=== PATIENT | female | born 1955 | race Caucasian/White ===

== ENCOUNTER 2018-03-12 14:05 | Emergency (ER) | payer MEDICARE, BC ==
[2018-03-12 14:23] VITALS: BP 122/82
--- NOTE | 2018-03-12 14:46 | ER Document Report ---
ED Extremity Problem, Lower - General Chief Complaint: Toe Injury Stated Complaint: TOE INJURY LEFT FOOT Time Seen by Provider: 03/12/18 14:33 Mode of Arrival: Ambulatory Information source: Patient Notes: 63-year-old female presents to ED for complaint of pain in the fourth toe on the left foot. She states she kicked a leg of the couch accidentally about an hour before coming to the emergency room and she states she was trying to help her mother get into her recliner chair. Patient is alert and oriented respirations regular and unlabored speaking in full sentences walks with a limp due to the pain in her fourth toe. - HPI Patient complains to provider of: Injury, Pain, Swelling Location: 4th Toe Occurred: Just prior to arrival Where: Home, Indoors Onset/Duration: Sudden, Better Quality of pain: No pain - States no pain at this moment Severity: None Pain Level: Denies Context: Stubbed Recent injury: Yes Associated symptoms: Painful ambulation Exacerbated by: Movement, Walking Relieved by: Nothing - Related Data Allergies/Adverse Reactions: No Known Allergies Allergy (Verified 03/12/18 14:07) Past Medical History - General Information source: Patient - Social History Smoking Status: Never Smoker Cigarette use (# per day): No Chew tobacco use (# tins/day): No Smoking Education Provided: No Frequency of alcohol use: None Drug Abuse: None Lives with: Family Family History: Reviewed & Not Pertinent Patient has suicidal ideation: No Patient has homicidal ideation: No - Past Medical History Cardiac Medical History: Reports: Hx Hypertension, Other - Venous stasis Pulmonary Medical History: Reports: None EENT Medical History: Reports: None Neurological Medical History: Reports: None Endocrine Medical History: Reports: Hx Hypothyroidism Renal/ Medical History: Reports: None GI Medical History: Reports: Hx Gastroesophageal Reflux Disease Musculoskeletal Medical History: Reports Hx Arthritis Skin Medical History: Reports None Psychiatric Medical History: Reports: None Traumatic Medical History: Reports: None Infectious Medical History: Reports: None Past Surgical History: Reports: Hx Abdominal Surgery - gastric bypass, hernia repair, Hx Section, Hx Thyroid Surgery - Immunizations Hx Diphtheria, Pertussis, Tetanus Vaccination: Yes Review of Systems - Review of Systems Constitutional: No symptoms reported EENT: No symptoms reported Cardiovascular: No symptoms reported Respiratory: No symptoms reported Gastrointestinal: No symptoms reported Genitourinary: No symptoms reported Female Genitourinary: No symptoms reported Musculoskeletal: No symptoms reported Skin: No symptoms reported Hematologic/Lymphatic: No symptoms reported Neurological/Psychological: No symptoms reported -: Yes All other systems reviewed and negative Physical Exam - Vital signs Vitals: Temp Pulse Resp BP Pulse Ox 97.8 F 72 20 122/82 99 03/12/18 14:22 03/12/18 14:22 03/12/18 14:22 03/12/18 14:22 03/12/18 14:22 Interpretation: Normal - General General appearance: Appears well, Alert - HEENT Head: Normocephalic, Atraumatic Eyes: Normal Pupils: PERRL - Respiratory Respiratory status: No respiratory distress Chest status: Nontender Breath sounds: Normal Chest palpation: Normal - Cardiovascular Rhythm: Regular Heart sounds: Normal auscultation Murmur: No - Abdominal Inspection: Normal Distension: No distension Bowel sounds: Normal Tenderness: Nontender Organomegaly: No organomegaly - Back Back: Normal, Nontender - Extremities General upper extremity: Normal inspection, Nontender, Normal color, Normal ROM , Normal temperature General lower extremity: Normal color, Normal ROM, Normal temperature, Normal weight bearing. No: Beck's sign Foot: Tender, Ecchymosis - Left fourth toe, Edema, No evidence of FB, Other - Patient has a history of venous stasis in both feet are 2-3+ edema pitting. No : Abrasion, Deformity, Instability, Laceration, Metatarsal compress. pain, Nail injury, Navicular tenderness, Puncture wound, Tender 5th metatarsal, Unable to bear weight - Neurological Neuro grossly intact: Yes Cognition: Normal Orientation: AAOx4 [place] Coma Scale Eye Opening: Spontaneous Shy Coma Scale Verbal: Oriented Shy Coma Scale Motor: Obeys Commands Shy Coma Scale Total: 15 Speech: Normal Motor strength normal: LUE, RUE, LLE, RLE Sensory: Normal - Psychological Associated symptoms: Normal affect, Normal mood - Skin Skin Temperature: Warm Skin Moisture: Dry Skin Color: Normal Course - Re-evaluation Re-evalutation: 03/12/18 14:46 Patient requested that she take her own medication that she brought from home. She states she took 650 of Tylenol and 400 of ibuprofen from her purse. They did appear to be Tylenol and Motrin. Ice was applied to the toe. 03/12/18 15:29 Patient has a comminuted fracture of the fourth toe. There is no opening so it is a closed fracture. She has been treated with a posterior ankle splint with crutches and instructed to follow-up with orthopedics. She states she does not need any narcotics at this time. Patient has been instructed on use of crutches and splint and how to loosen the Anmol wraps on the splint for any swelling. Patient has been instructed on elevation and ice for the foot. Patient will be discharged home with instructions to follow-up with orthopedics. - Vital Signs Vital signs: Temp Pulse Resp BP Pulse Ox 97.8 F 72 20 122/82 99 03/12/18 14:22 03/12/18 14:22 03/12/18 14:22 03/12/18 14:22 03/12/18 14:22 - Diagnostic Test Radiology reviewed: Image reviewed, Reports reviewed Procedures - Immobilization Left Toe 4th digit Time completed: 15:30 Immobilizer type: Posterior ankle Performed by: PCT Post-Proc Neuro Vasc Exam: Normal Alignment checked and good: No - Fracture was not set but she does have Refills. Discharge - Discharge Clinical Impression: Fracture of fourth toe, left, closed Qualifiers: Encounter type: initial encounter Qualified Code(s): S92.502A - Displaced unspecified fracture of left lesser toe(s), initial encounter for closed fracture Condition: Stable Disposition: HOME, SELF-CARE Additional Instructions: Fractured Toe You have fractured your toe. This fracture need a splint, emergency evaluation was needed to assess the straightness of the bones and joints. Reduction ("setting") is necessary for toe fractures which are crooked or twisted. A toe fracture will heal in about three weeks. No fracture is a comminuted fracture that needs evaluation by a research quality assurance specialist. Ice and elevation help during the first 48 hours. You may need crutches at first if walking is painful. When you begin walking, be careful NOT to do things that hurt. If weight bearing is not comfortable within a few days, you may require a special shoe, walking boot, or cast. Call the doctor or return at once if severe swelling, severe pain, or numbness develop in the toe, or if you suspect you may have re-injured it. SPLINT PRECAUTIONS: A splint has been placed. This will protect the area while healing begins. Your problem does NOT normally require a cast. It MUST, however, be held still! Keep the splint on ALL THE TIME until instructed to remove it by the doctor. As you begin to use the area, be careful. You shouldn't do anything which causes discomfort -- you may disturb the injury even with the splint in place. After the initial period of rest and elevation, if splint does not prevent pain when you move, come back. You may require placement of a different splint , or a cast. If there is unexpected severe pain, or numbness, discoloration, or swelling beyond the splint, you should return at once. If you feel that the splint has broken or become loose, come back. USE OF CRUTCHES: The doctor has recommended that you not bear weight at this time. You will need to use crutches. Adjust the crutches so the tops come to about two inches under the armpit while you are standing upright. Use your hands -- not your armpits -- to support your weight. To get into a chair, support yourself with one crutch on the injured side. Hold the chair with the other hand, then lower yourself while putting all your weight on the good leg. Going up stairs is `good leg up, step up, then bring up crutches and bad leg.' Down stairs is `bad leg and crutches down, then bring good leg down.' If you develop numbness or swelling in an arm or hand, you are using the crutches incorrectly. Return if you are having any problems with the crutches. ICE & ELEVATION: Apply ice packs frequently against the painful area. Many different schedules are recommended, such as "20 minutes on, 20 minutes off" or "one hour ice, two hours rest." If you need to work, you may need to go longer between ice treatments. You should plan to have the area ice packed AT LEAST one- fourth of the time. The ice should be applied over the wrap, tape, or splint, or over a layer of cloth -- not directly against the skin. Some ice bags have a built-in cloth and can be put directly on the skin. Your injured part should be elevated as much as possible over the next 48 hours. Try to keep the injury above the level of the heart. Avoid use of the injured area. Elevation and rest will decrease the swelling. USE OF DHUK-FRS-LCIDENF IBUPROFEN: Ibuprofen (Advil, Nuprin, Medipren, Motrin IB) is a medication for fever and pain control. In addition, it has anti- inflammatory effects which may be beneficial, especially in the treatment of injuries. It's best to take ibuprofen with food. Persons with ulcer disease or allergy to aspirin should notify their physician of this before taking ibuprofen. Ibuprofen can be given every four to six hours, for a total of four doses daily. Age Pain or fever dose Antiinflammatory dose 6-8 yr 200 mg (1 tab) 200 mg (1 tab) 9-11 yr 200 mg (1 tab) 200-400 mg (1-2 tab) 11-14 yr 200-400 mg (1-2 tab) 400 mg (2 tab) 15-adult 400 mg (2 tab) 600 mg (3 tab) Acetaminophen Acetaminophen may be taken for pain relief or fever control. It's much safer than aspirin, offering a wider range of "safe" dosages. It is safe during . Some brand names are Tylenol, Panadol, Datril, Anacin 3, Tempra, and Liquiprin. Acetaminophen can be repeated every four hours. The following are maximum recommended dosages: WEIGHT Dose Drops Elixir Chewable( 80mg) (LBS.) drprs=droppers tsp=teaspoon 6 40 mg .4 ml (1/2) 6-11 80 mg .8 ml (full) 1/2 tsp 1 tab 12-16 120 mg 1 1/2 drprs 3/4 tsp 1 1/2 tabs 17-23 160 mg 2 drprs 1 tsp 2 tabs 24-30 240 mg 3 drprs 1 1/2 tsp 3 tabs 30-35 320 mg 2 tsp 4 tabs 36-41 360 mg 2 1/4 tsp 4 1 /2 tabs 42-47 400 mg 2 1/2 tsp 5 tabs 48-53 480 mg 3 tsp 6 tabs 54-59 520 mg 3 1/4 tsp 6 1 /2 tabs 60-64 560 mg 3 1/2 tsp 7 tabs 65-70 600 mg 3 3/4 tsp 7 1 /2 tabs 71-76 640 mg 4 tsp 8 tabs 77-82 720 mg 4 1/2 tsp 9 tabs 83-88 800 mg 5 tsp 10 tabs >89 pounds or adults 650 mg to 900 mg Acetaminophen can be repeated every four hours. Maximum daily dose not to exceed 4000 mg. These maximum recommended dosages are slightly higher than the dosages written on the product container, but these dosages are very safe and well below the toxic dosage for acetaminophen. FOLLOW-UP CARE: If you have been referred to a physician for follow-up care, call the physician s office for an appointment as you were instructed or within the next two days. If you experience worsening or a significant change in your symptoms, notify the physician immediately or return to the Emergency Department at any time for re-evaluation. Referrals: SEN OGDEN MD [Primary Care Provider] - Follow up as needed ARAMIS ALVAREZ MD [ACTIVE STAFF] - Follow up as needed
--- NOTE | 2018-03-12 15:30 | RADIOLOGY REPORT (SQ) ---
EXAM DESCRIPTION: FOOT LEFT COMPLETE COMPLETED DATE/TIME: 03/12/2018 3:03 pm REASON FOR STUDY: Accidentally kicked the foot of a couch COMPARISON: None. NUMBER OF VIEWS: Three views. TECHNIQUE: AP, lateral and oblique radiographic images acquired of the left foot. LIMITATIONS: None. FINDINGS: MINERALIZATION: Osteopenic. BONES: Acute fracture right 4th toe proximal phalanx with slight lateral displacement of the distal f racture fragment. JOINTS: No effusions. SOFT TISSUES: Mild forefoot soft tissue swelling. No foreign body. OTHER: No other significant finding. IMPRESSION: Acute fracture right 4th toe proximal phalanx. TECHNICAL DOCUMENTATION: JOB ID: [id number] [employer]- All Rights Reserved Reading location - IP/workstation name: [email or web address]
== END 2018-03-12 15:50 | disposition home or self-care (01) ==
LOC: ER 14:05
DX: S92.512A Displaced fracture of proximal phalanx of left lesser toe(s), initial encounter for closed fracture (principal); W22.03XA Walked into furniture, initial encounter; Y93.89 Activity, other specified; Y92.009 Unspecified place in unspecified non-institutional (private) residence as the place of occurrence of the external cause; I10 Essential (primary) hypertension; Z98.84 Bariatric surgery status
CPT/HCPCS: 99283

== ENCOUNTER 2018-04-07 07:28 | Emergency (ER) | payer MEDICARE, BC ==
[2018-04-07] MEDS ORDERED: LIDOCAINE 5% (700 MG) TRANSDERMAL ADH..PATCH TP ONE (08:05)
[2018-04-07] MEDS ORDERED: IBUPROFEN 600 MG TABLET PO ONE (08:05)
--- NOTE | 2018-04-07 08:09 | ER Document Report ---
HPI - HPI Pain Level: 3 Notes: Patient is a 63-year-old female who presents with chief complaint of pain to her left ribs and back. Patient reports that she was up early this morning making cupcakes when she fell backwards, she landed onto a chair that was sitting on the ground. She reports pain with deep breath however she denies any shortness of breath. - REPRODUCTIVE Reproductive: DENIES: : <NOLAN QUEZADA - Last Filed: 04/07/18 08:21> - HPI Onset/Duration: Sudden Quality of pain: Sharp Associated Symptoms: None Exacerbated by: Movement Relieved by: Denies <AUSTINYELENA - Last Filed: 04/07/18 10:19> Past Medical History - General Information source: Patient - Social History Smoking Status: Never Smoker Frequency of alcohol use: None Drug Abuse: None Family History: Reviewed & Not Pertinent - Past Medical History Cardiac Medical History: Reports: Hx Hypertension Endocrine Medical History: Reports: Hx Hypothyroidism Renal/ Medical History: Denies: Hx Peritoneal Dialysis GI Medical History: Reports: Hx Gastroesophageal Reflux Disease Musculoskeletal Medical History: Reports Hx Arthritis Past Surgical History: Reports: Hx Abdominal Surgery - gastric bypass, hernia repair, Hx Section, Hx Thyroid Surgery - Immunizations Hx Diphtheria, Pertussis, Tetanus Vaccination: Yes <NOLAN QUEZADA - Last Filed: 04/07/18 08:21> Vertical Provider Document - CONSTITUTIONAL Notes: PHYSICAL EXAMINATION: GENERAL: Well-appearing, well-nourished and in no acute distress. HEAD: Atraumatic, normocephalic. EYES: Pupils equal round extraocular movements intact, conjunctiva are normal. ENT: Nares patent NECK: Normal range of motion LUNGS: No respiratory distress, lung sounds are clear and equal bilaterally. Musculoskeletal: Normal range of motion, no ecchymosis, erythema or crepitus noted on palpation to left ribs. NEUROLOGICAL: Normal speech, normal gait. PSYCH: Normal mood, normal affect. SKIN: Warm, Dry, normal turgor, no rashes or lesions noted. - INFECTION CONTROL TRAVEL OUTSIDE OF THE [place] IN LAST 30 DAYS: No <NOLAN QUEZADA - Last Filed: 04/07/18 08:21> Course - Re-evaluation Re-evalutation: 04/07/18 08:07 Medications ordered for pain. Patient does not appear to be in any acute distress. Will order left ribs with a PA chest to rule out pneumothorax. - Vital Signs Vital signs: Temp Pulse Resp BP Pulse Ox 98.0 F 82 20 115/57 L 99 04/07/18 07:35 04/07/18 07:35 04/07/18 07:35 04/07/18 07:35 04/07/18 07:35 <NOLAN QUEZADA - Last Filed: 04/07/18 08:21> - Re-evaluation Re-evalutation: 04/07/18 10:16 I personally evaluated this patient. She received Lidoderm patch and anti- inflammatories and had significant improvement of her pain. CT scan does show 3 consecutive rib fractures with no underlying pneumothorax or lung contusion she has no flail segment and is breathing easily. She appears comfortable and is able to ambulate without much difficulty. She will be given incentive spirometer and was counseled on symptoms of pneumonia to return to the emergency room. She will be given [place] for pain control. She will follow with primary care for close reevaluation as her rib fractures heal. She will return to the ED for new or worsening symptoms. She was discharged in stable condition. - Vital Signs Vital signs: Temp Pulse Resp BP Pulse Ox 98.0 F 82 20 115/57 L 99 04/07/18 07:35 04/07/18 07:35 04/07/18 07:35 04/07/18 07:35 04/07/18 07:35 <YELENA AUSTIN - Last Filed: 04/07/18 10:19> Discharge <NOLAN QUEZADA - Last Filed: 04/07/18 08:21> <YELENA AUSTIN - Last Filed: 04/07/18 10:19> - Discharge Clinical Impression: Rib fractures Qualifiers: Encounter type: initial encounter Rib fracture type: multiple ribs Fracture type: closed Laterality: left Qualified Code(s): S22.42XA - Multiple fractures of ribs, left side, initial encounter for closed fracture Condition: Stable Disposition: HOME, SELF-CARE Instructions: Rib Injuries and Fractures ([facility]) Additional Instructions: Please return to the emergency department if you have any worsening, or concern of your symptoms. Please return to the emergency department if you develop chest pain, difficulty breathing, severe abdominal pain, or ongoing vomiting. Please follow-up with your primary care physician in 2-3 days and any other recommended physicians. If prescribed, take all medications as directed. If you have any questions or concerns do not hesitate to return the emergency department for evaluation. Use your incentive spirometer at least 2-3 times daily, with 10 deep breaths. Return for any fevers or increased coughing Prescriptions: Hydrocodone/Acetaminophen [[place] 5-325 mg Tablet] 1 tab PO Q6 #12 tablet Referrals: SEN OGDEN MD [NO LOCAL MD] - Follow up in 1 week
--- NOTE | 2018-04-07 08:22 | ER Document Report ---
ED General Pain - General Chief Complaint: Rib Pain Stated Complaint: FALL/LEFT RIB PAIN Time Seen by Provider: 04/07/18 07:58 TRAVEL OUTSIDE OF THE [place] IN LAST 30 DAYS: No - Related Data Allergies/Adverse Reactions: No Known Allergies Allergy (Verified 04/07/18 07:30) Past Medical History - General Information source: Patient - Social History Smoking Status: Never Smoker Chew tobacco use (# tins/day): No Frequency of alcohol use: None Drug Abuse: None Family History: Reviewed & Not Pertinent Patient has suicidal ideation: No Patient has homicidal ideation: No - Past Medical History Cardiac Medical History: Reports: Hx Hypertension Endocrine Medical History: Reports: Hx Hypothyroidism Renal/ Medical History: Denies: Hx Peritoneal Dialysis GI Medical History: Reports: Hx Gastroesophageal Reflux Disease Musculoskeletal Medical History: Reports Hx Arthritis Past Surgical History: Reports: Hx Abdominal Surgery - gastric bypass, hernia repair, Hx Section, Hx Thyroid Surgery - Immunizations Hx Diphtheria, Pertussis, Tetanus Vaccination: Yes Physical Exam - Vital signs Vitals: Temp Pulse Resp BP Pulse Ox 98.0 F 82 20 115/57 L 99 04/07/18 07:35 04/07/18 07:35 04/07/18 07:35 04/07/18 07:35 04/07/18 07:35 Course - Vital Signs Vital signs: Temp Pulse Resp BP Pulse Ox 98.0 F 82 20 115/57 L 99 04/07/18 07:35 04/07/18 07:35 04/07/18 07:35 04/07/18 07:35 04/07/18 07:35 Discharge - Discharge Referrals: SEN OGDEN MD [NO LOCAL MD] - Follow up as needed
--- NOTE | 2018-04-07 08:49 | RADIOLOGY REPORT (SQ) ---
EXAM DESCRIPTION: RIBS LEFT W/PA CHEST COMPLETED DATE/TIME: 04/07/2018 8:38 am REASON FOR STUDY: fall, posterior rib pain COMPARISON: None. TECHNIQUE: Frontal view of the chest and additional views of the left ribs acquired. NUMBER OF VIEWS: Three view. LIMITATIONS: None. FINDINGS: FRONTAL CXR: No pneumothorax. No pleural effusion. No atelectasis or infiltrates. RIBS: Fractures of the left 4th 5th and 6th posterior ribs. OTHER: No other significant finding. IMPRESSION: Recent fractures 4th, 5th, and 6th posterior ribs. No pulmonary contusion or pneumothor ax. COMMENT: SITE OF TRAUMA/COMPLAINT MARKED/STAMP COMPLETED: YES. TECHNICAL DOCUMENTATION: JOB ID: [id number] [employer]- All Rights Reserved Reading location - IP/workstation name: [email or web address]
--- NOTE | 2018-04-07 09:28 | RADIOLOGY REPORT (SQ) ---
EXAM DESCRIPTION: CT CHEST WITHOUT COMPLETED DATE/TIME: 04/07/2018 9:14 am REASON FOR STUDY: eval for pneumothorax or lung contusion, 3 rib fx COMPARISON: None. TECHNIQUE: CT scan performed of the chest without intravenous contrast. Images reviewed with lung, soft tissue and bone windows. Reconstructed coronal and sagittal MPR images reviewed. All images st ored on PACS. All CT scanners at this facility use dose modulation, iterative reconstruction, and/or weight based d osing when appropriate to reduce radiation dose to as low as reasonably achievable (ALARA). [facility]: Dose Right [facility]: CareDose [facility]: Dose Right [facility]: Teradose 4D [facility]: [employer] RADIATION DOSE: CT Rad equipment meets quality standard of care and radiation dose reduction techniq ues were employed. CTDIvol: 19.2 mGy. DLP: 834 mGy-cm. mGy. LIMITATIONS: No technical limitations. FINDINGS: LUNGS AND PLEURA: No masses, infiltrates, or pneumothorax. No pleural effusions or pleura l calcifications. HILAR AND MEDIASTINAL STRUCTURES: No identified masses or abnormal nodes. No obvious aneurysm. HEART AND VASCULAR STRUCTURES: No aneurysm. No pericardial effusion. UPPER ABDOMEN: There are postsurgical changes in the epigastric region. IVC filter is in place. THYROID AND OTHER SOFT TISSUES: No masses. No adenopathy. BONES: No significant finding. HARDWARE: None in the chest. OTHER: No other significant findings. IMPRESSION: No pneumothorax. No pulmonary contusion. TECHNICAL DOCUMENTATION: JOB ID: [id number] Quality ID # [id number]: Final reports with documentation of one or more dose reduction techniques (e.g., Au tomated exposure control, adjustment of the mA and/or kV according to patient size, use of iterative reconstruction technique) 2010 [employer]- All Rights Reserved Reading location - IP/workstation name: [email or web address]
[2018-04-07 10:29] VITALS: BP 105/68
== END 2018-04-07 10:43 | disposition home or self-care (01) ==
LOC: ER 07:28
DX: S22.42XA Multiple fractures of ribs, left side, initial encounter for closed fracture (principal); W19.XXXA Unspecified fall, initial encounter; Y93.G3 Activity, cooking and baking; I10 Essential (primary) hypertension
CPT/HCPCS: 99284; 71101; 71250; A9270

== ENCOUNTER 2019-02-06 12:05 | Emergency (ER) | payer MEDICARE, BC ==
--- NOTE | 2019-02-06 12:49 | ER Document Report ---
ED Medical Screen (RME) - General Chief Complaint: Urinary Problem Stated Complaint: URINARY PROBLEM Time Seen by Provider: 02/06/19 12:43 Mode of Arrival: Ambulatory Information source: Patient Notes: 64-year-old female presents to ED for painful urination that started Thursday. Been taking Azo which was controlling discomfort. She was going to wait till Thursday to see the doctor but last night she had a severe spasm and then she was incontinent of urine. She is now coming to the ED to be examined and treated. She states she did have home Azo test and it tested positive for leukocytes and nitrites. We will get a urine urine culture and examined the patient. She denies any vaginal discharge or bleeding. I have greeted and performed a rapid initial assessment of this patient. A c omprehensive ED assessment and evaluation of the patient, analysis of test results and completion of medical decision making process will be conducted by an additional ED providers. TRAVEL OUTSIDE OF THE [place] IN LAST 30 DAYS: No - Related Data Allergies/Adverse Reactions: No Known Allergies Allergy (Verified 02/06/19 12:09) Past Medical History - Past Medical History Cardiac Medical History: Reports: Hx Hypertension Endocrine Medical History: Reports: Hx Hypothyroidism Renal/ Medical History: Denies: Hx Peritoneal Dialysis GI Medical History: Reports: Hx Gastroesophageal Reflux Disease Musculoskeltal Medical History: Reports Hx Arthritis Past Surgical History: Reports: Hx Abdominal Surgery - gastric bypass, hernia repair, Hx Section, Hx Thyroid Surgery - Immunizations Hx Diphtheria, Pertussis, Tetanus Vaccination: Yes Physical Exam - Vital signs Vitals: Temp Pulse Resp BP Pulse Ox 97.7 F 64 18 127/69 H 98 02/06/19 12:11 02/06/19 12:11 02/06/19 12:11 02/06/19 12:11 02/06/19 12:11 Course - Vital Signs Vital signs: Temp Pulse Resp BP Pulse Ox 97.7 F 64 18 127/69 H 98 02/06/19 12:11 02/06/19 12:11 02/06/19 12:11 02/06/19 12:11 02/06/19 12:11
[2019-02-06 14:26] LABS: APPEARANCE,URINE CLEAR; BILIRUBIN,URINE NEGATIVE (NEGATIVE); COLOR,URINE AMBER; GLUCOSE, URINE NEGATIVE (NEGATIVE); KETONES,URINE NEGATIVE (NEGATIVE); LEUKOCYTE ESTERASE,URINE NEGATIVE (NEGATIVE); NITRITE,URINE POSITIVE (NEGATIVE); PROTEIN,URINE NEGATIVE (NEGATIVE); URINE SPECIFIC GRAVITY 1.014
--- NOTE | 2019-02-06 14:27 | ER Document Report ---
HPI - HPI Patient complains to provider of: uti Time Seen by Provider: 02/06/19 12:43 Onset/Duration: Gradual Quality of pain: Burning, Pressure Severity: Moderate Pain Level: 3 Context: 64 Yr old female patient, with the listed pmh, here for dysuria and frequency x 3 days. No abdominal surgeries unless as listed. No history of ovarian cysts, fibroids, endometriosis, or renal stones. Normal bowel movements. No other UTI symptoms. No URI symptoms. No recent antibiotics or steroids. No history of diabetes or asthma. No vaginal discharge/complaints/lesions or concerns for STDs and does not want a pelvic exam. She has taken [id number] Azo for her symptoms. History of a UTI remotely in the past and it feels the same. Hasn't taken anything else for her symptoms. No excessive NSAID use, Tylenol use, or EtOH. No abdominal pain. No change in color or caliber or stool. no blood thinners. no fall or trauma. no other associated sx. - ROS Systems Reviewed and Negative: Yes All other systems reviewed and negative - To include 10 systems, unless mentioned in the hpi. - REPRODUCTIVE Reproductive: DENIES: : Past Medical History - General Information source: Patient - Social History Smoking Status: Never Smoker Chew tobacco use (# tins/day): No Frequency of alcohol use: None Drug Abuse: None Family History: Reviewed & Not Pertinent Patient has suicidal ideation: No Patient has homicidal ideation: No - Past Medical History Cardiac Medical History: Reports: Hx Hypertension Endocrine Medical History: Reports: Hx Hypothyroidism Renal/ Medical History: Denies: Hx End Stage Renal Disease, Hx Kidney Stones, Hx Peritoneal Dialysis GI Medical History: Reports: Hx Gastroesophageal Reflux Disease Musculoskeletal Medical History: Reports Hx Arthritis Past Surgical History: Reports: Hx Abdominal Surgery - gastric bypass, hernia repair, Hx Section, Hx Thyroid Surgery - Immunizations Immunizations up to date: Yes Vertical Provider Document - CONSTITUTIONAL Agree With Documented VS: Yes Exam Limitations: No Limitations General Appearance: No Apparent Distress Notes: >>>> PHYSICAL_EXAM: GENERAL_APPEARANCE: well_nourished, alert, cooperative, no_acute_distress, no_obvious_discomfort. Pleasant, obese elderly white female, smiling, speaking in full sentences, in no sign of pain or resp distress, easily sitting up VITALS: reviewed, see vital signs table. HEAD: normocephalic, atraumatic. no winston signs. no raccoon eyes. EYES: PERRL, EOMI, (-)scleral icterus. NOSE: no_nasal_discharge. MOUTH: (-)decreased moisture. THROAT: no_tonsilar_inflammation/hypertrophy/exudate NECK: supple, no_neck_tenderness, full rom. full strength. BACK: no midline_back_tenderness. no step offs or deformities CHEST_WALL: no_chest_tenderness. LUNGS: no_wheezing, (-)accessory muscle use, good air exchange bilateral. HEART: normal_rate, normal_rhythm, ABDOMEN: normal_BS, soft, abdomen-diffuse, non-tender, (-)guarding, (- )rebound, no distension or peritoneal signs. neg murphys. neg mcburneys. no cva tenderness. neg heel strike. neg obturator. neg psoas. neg rovsign. PELVIC: Deferred RECTAL: deferred EXTREMITIES: strength 5/5 in all_extremities, good pulses in all_extremities, no_edema, no_swelling\tenderness. full rom. normal gait. good hand employee adviser. brisk cap refill. SKIN: warm, dry, good_color, no_rash. no grossly visible overlying skin changes to suggest trauma NEURO: motor_intact, sensory_intact. MENTAL_STATUS: normal_affect, speech_clear, oriented_X_3, responds_appropriately to questions. - INFECTION CONTROL TRAVEL OUTSIDE OF THE [place] IN LAST 30 DAYS: No Course - Re-evaluation Re-evalutation: 02/06/19 15:10 Pt here for likely UTI. Urine culture is pending. We will discharge her with Keflex. Advised we will call her with any results that require change in plan of care. She can continue to take Azo. Drink plenty of fluids. advised to f/u with pcp in 1-2 days. return for any worsening symptoms. vss. well appearing. satting well on ra. neurononfocal. pt understands and agrees to plan. On reexam, pt improved with tx listed. remained stable. nontoxic. well appearing. pain controlled. tolerating po. requesting to go home. Documentation achieved through voice recording which may lead to some occasional accidental typographical errors. Extensive efforts have been made to proof read documentation to make sure these are the least as possible. Category Date Time Status URINALYSIS [URIN] Stat Lab 02/06/19 14:10 Completed URINE CULTURE [MC] Stat Lab 02/06/19 14:10 Received - Vital Signs Vital signs: Temp Pulse Resp BP Pulse Ox 97.7 F 64 18 127/69 H 98 02/06/19 12:11 02/06/19 12:11 02/06/19 12:11 02/06/19 12:11 02/06/19 12:11 - Laboratory Laboratory results interpreted by me: 02/06/19 15:11 Labs- Entire Visit 02/06/19 14:10 Urine Color RADHA Urine Appearance CLEAR Urine pH 6.0 Ur Specific [place] 1.014 Urine Protein NEGATIVE Urine Glucose (UA) NEGATIVE Urine Ketones NEGATIVE Urine Blood NEGATIVE Urine Nitrite POSITIVE H Urine Bilirubin NEGATIVE Urine Urobilinogen 4.0 H Ur Leukocyte Esterase NEGATIVE Urine WBC (Auto) 4 Urine RBC (Auto) 1 Squamous Epi Cells Auto <1 Urine Mucus (Auto) RARE Urine Ascorbic Acid NEGATIVE Discharge - Discharge Clinical Impression: UTI (urinary tract infection) Qualifiers: Urinary tract infection type: site unspecified Hematuria presence: without hematuria Qualified Code(s): N39.0 - Urinary tract infection, site not specified Condition: Good Disposition: HOME, SELF-CARE Instructions: Urinary Tract Infection ([facility]) Additional Instructions: Follow-up with PCP in 1 to 2 days. Return for any worsening symptoms. Continue to take the Azo for any urinary symptoms. We will call you with any abnormal results that require change in plan of care. Drink plenty of water. take the medication as prescribed. Prescriptions: Cephalexin Monohydrate [Keflex 500 mg Capsule] 500 mg PO BID 7 Days #14 capsule Referrals: SEN OGDEN MD [Primary Care Provider] - Follow up as needed
[2019-02-06 15:37] VITALS: BP 127/80
== END 2019-02-06 15:38 | disposition home or self-care (01) ==
LOC: ER 12:05
DX: N39.0 Urinary tract infection, site not specified (principal); R30.0 Dysuria; R35.0 Frequency of micturition; I10 Essential (primary) hypertension
CPT/HCPCS: 81001; 87086; 87088; 87186; 99283

== ENCOUNTER 2019-12-31 09:53 | Inpatient (IN) | payer MEDICARE, BC ==
[2019-12-31] MEDS: NORMAL SALINE 1000 ML 1,000 ML IV PRN ×3 (10:00→20:58)
[2019-12-31 10:51] LABS: HEMATOCRIT 40.6 % (36.0-47.0); HEMOGLOBIN 13.9 g/dL (12.0-15.5); MEAN CORPUSCULAR HEMOGLOBIN 31.4 pg (27.0-33.4); MEAN CORPUSCULAR HGB CONC 34.1 g/dL (32.0-36.0); MEAN CORPUSCULAR VOLUME 92 fl (80-97); PLATELET COUNT 142 10^3/uL (150-450); RED BLOOD COUNT 4.41 10^6/uL (3.72-5.28); RED CELL DISTRIBUTION WIDTH 13.7 % (11.5-14.0); WHITE BLOOD COUNT 9.9 10^3/uL (4.0-10.5)
--- NOTE | 2019-12-31 10:55 | RADIOLOGY REPORT (SQ) ---
EXAM DESCRIPTION: CHEST SINGLE VIEW IMAGES COMPLETED DATE/TIME: 12/31/2019 10:37 am REASON FOR STUDY: Shortness of Breath COMPARISON: None. NUMBER OF VIEWS: One view. TECHNIQUE: Single frontal radiographic view of the chest acquired. LIMITATIONS: None. FINDINGS: LUNGS AND PLEURA: There is patchy airspace opacity throughout the left lung. The right palak ng is clear. No pleural effusion or pneumothorax. MEDIASTINUM AND HILAR STRUCTURES: No masses. Contour normal. HEART AND VASCULAR STRUCTURES: Heart normal in size. Normal vasculature. BONES: There are subacute fractures of several left upper ribs. HARDWARE: None in the chest although some surgical clips project over the thoracic inlet. OTHER: No other significant finding. IMPRESSION: Subacute left upper rib fractures with patchy opacities over the left lung. This may re present posttraumatic changes or infection. Recommend clinical correlation and follow-up imaging to resolution. TECHNICAL DOCUMENTATION: JOB ID: [id number] 2010 [email or web address]- All Rights Reserved Reading location - IP/workstation name: [email or web address]
[2019-12-31 11:05] LABS: ALBUMIN 3.9 g/dL (3.5-5.0); ALKALINE PHOSPHATASE 64 U/L (38-126); ASPARTATE AMINO TRANSFERASE 26 U/L (14-36); BILIRUBIN,TOTAL 0.9 mg/dL (0.2-1.3); BLOOD UREA NITROGEN 15 mg/dL (7-20); CALCIUM 9.4 mg/dL (8.4-10.2); CREATINE KINASE 68 U/L (30-135); GLUCOSE 105 mg/dL (75-110); POTASSIUM 3.8 mmol/L (3.6-5.0); TOTAL PROTEIN 6.5 g/dL (6.3-8.2)
[2019-12-31 11:10] LABS: ANION GAP 5 (5-19); CARBON DIOXIDE 30 mmol/L (22-30); CHLORIDE 101 mmol/L (98-107)
[2019-12-31 11:13] LABS: ABSOLUTE LYMPHOCYTES# (MANUAL) 0.6 10^3/uL (0.5-4.7); ABSOLUTE MONOCYTES # (MANUAL) 0.8 10^3/uL (0.1-1.4); BASOPHILS % (MANUAL) 0 % (0-2); EOSINOPHILS % (MANUAL) 0 % (0-6); LYMPHOCYTES % (MANUAL) 6 % (13-45); MONOCYTES % (MANUAL) 8 % (3-13); SEGMENTED NEUTROPHILS % (MAN) 86 % (42-78); TOTAL CELLS COUNTED 100
[2019-12-31 11:14] LABS: PLATELET COMMENT ADEQUATE; RBC MORPHOLOGY COMMENT NORMO-CYTIC/CHROMIC
[2019-12-31 11:17] LABS: CREATINE KINASE MB 0.55 ng/mL (<4.55); NT PRO BNP 290 pg/mL (<125)
[2019-12-31 11:27] LABS: TROPONIN I < 0.012 ng/mL
[2019-12-31 12:23] LABS: A TYPE INFLUENZA AG NEGATIVE (NEGATIVE); B INFLUENZA AG NEGATIVE (NEGATIVE)
[2019-12-31] MEDS ORDERED: PIPERACILLIN/TAZOBACTAM 4.5 GM VIAL IV ONE (14:08)
--- NOTE | 2019-12-31 14:12 | ER Document Report ---
ED General - General Chief Complaint: Shortness Of Breath Stated Complaint: SHORTNESS OF BREATH,FEVER, Time Seen by Provider: 12/31/19 12:49 Primary Care Provider: SEN OGDEN MD [Primary Care Provider] - Follow up as needed Notes: 64-year-old female presents emergency department stating that this morning she woke up and felt like she was having her usual reflux, states that she had a burning pain in her chest that went up into her throat and that it made her cough and feels somewhat short of breath. No pain anywhere else. States that shortly thereafter she felt very weak, had uncontrollable shivering chills and sweats. States that she has not had the sweats and chills with her reflux before. Admits to a nonproductive cough that is been going on since this morning. Denies any symptoms prior to this. Has been visiting her mother who lives in a hospice/long-term care facility. Admits nausea, 1 episode of nonbloody nonbilious emesis, denies diarrhea. Denies dysuria. Admits history of gastric bypass surgery several years ago. TRAVEL OUTSIDE OF THE [place] IN LAST 30 DAYS: No - Related Data Allergies/Adverse Reactions: No Known Allergies Allergy (Verified 12/31/19 10:38) Past Medical History - General Information source: Patient - Social History Smoking Status: Never Smoker Frequency of alcohol use: None Drug Abuse: None Family History: Reviewed & Not Pertinent - Past Medical History Cardiac Medical History: Reports: Hx Hypertension Endocrine Medical History: Reports: Hx Hypothyroidism Renal/ Medical History: Denies: Hx End Stage Renal Disease, Hx Kidney Stones, Hx Peritoneal Dialysis GI Medical History: Reports: Hx Gastroesophageal Reflux Disease Musculoskeletal Medical History: Reports Hx Arthritis Past Surgical History: Reports: Hx Abdominal Surgery - gastric bypass, hernia repair, Hx Section, Hx Thyroid Surgery - Immunizations Immunizations up to date: Yes Hx Diphtheria, Pertussis, Tetanus Vaccination: Yes Review of Systems - Review of Systems Constitutional: See HPI, Chills, Diaphoresis, Fever, Malaise EENT: See HPI, Throat pain Cardiovascular: See HPI, Chest pain Respiratory: See HPI, Cough. denies: Short of breath Gastrointestinal: See HPI, Vomiting -: Yes All other systems reviewed and negative Physical Exam - Vital signs Vitals: Temp Pulse BP Pulse Ox 98.6 F 102 H 90/64 L 92 12/31/19 10:08 12/31/19 10:08 12/31/19 10:08 12/31/19 10:08 Interpretation: Hypotensive, Tachycardic - Notes Notes: GENERAL: Alert, interacts well. No acute distress. HEAD: Normocephalic, atraumatic EYES: Pupils equal, round and reactive to light, extraocular movements intact. ENT: Oral mucosa moist, tongue midline. NECK: Full range of motion, supple, trachea midline. LUNGS: Clear to auscultation bilaterally, no wheezes, rales or rhonchi, no r espiratory distress. No chest wall tenderness to palpation HEART: Mildly tachycardic rate and rhythm, no murmurs, gallops, rubs. ABDOMEN: Soft, nontender, nondistended, bowel sounds present in all 4 quadrants. EXTREMITIES: Moves all 4 extremities spontaneously, trace nonpitting edema, radial and dorsalis pedis pulses 2/4 bilaterally. No cyanosis. NEUROLOGICAL: Alert and oriented x3, normal speech, biceps and patellar DTRs 2+ bilaterally. PSYCH: Normal mood, normal affect. SKIN: Warm, Dry, normal turgor, no rashes or lesions noted. Course - Re-evaluation Re-evalutation: 12/31/19 14:11 Patient was hypotensive, tachycardic and hypoxic on arrival, after 2 L of lactated Ringer's pressure is still only in the 90s systolic, she did require 2 L via nasal cannula to keep her oxygen level above 90%. Does not normally use oxygen at home. CBC shows slight low platelets at 142, chemistries grossly unremarkable, no sign of heart attack or congestive heart failure, flu swabs are negative, chest x-ray shows possible subacute rib fractures and infiltrates versus contusions. CT of the chest will be used to look for further detail on this including possible PE versus pneumonia versus pulmonary contusion. Also looking for possibility of malignancy. Patient states that she did have broken ribs on her left hand side but these were posterior ribs broken 2 years ago. Chest x-ray findings are more acute than this. I am concerned for possible sepsis, patient is being given weight-based fluid boluses of saline 30 mL/kg of ideal body weight. Patient is also been given Zosyn. 12/31/19 15:45 CTA shows multilobar pneumonia, discussed case with Dr. Abbott who accepts the patient to his service. Additional bolus is being given of LR, ideal body weight is being targeted at approximately 62 kg for a bolus of 1840 mL's. - Vital Signs Vital signs: Temp Pulse Resp BP Pulse Ox 98.6 F 102 H 28 H 80/66 L 100 12/31/19 10:08 12/31/19 10:08 12/31/19 13:01 12/31/19 13:01 12/31/19 13:01 - Laboratory Result Diagrams: 12/31/19 10:32 12/31/19 10:32 Laboratory results interpreted by me: 12/31/19 12/31/19 12/31/19 10:32 10:32 10:32 Plt Count 142 L Seg Neuts % (Manual) 86 H Lymphocytes % (Manual) 6 L Abs Neuts (Manual) 8.5 H Sodium 136.0 L NT-Pro-B Natriuret Pep 290 H - EKG Interpretation by Me Additional EKG results interpreted by me: 12/31/19 14:12 EKG shows sinus rhythm at a rate of 98, normal axis, normal intervals, occasional PACs, no ST segment elevations or depressions, T wave inversions noted in lead III, poor R wave progression per my interpretation. Critical Care Note - Critical Care Note Total time excluding time spent on procedures (mins): 35 Discharge - Discharge Clinical Impression: Multilobar lung infiltrate, Sepsis associated hypotension Pneumonia Qualifiers: Pneumonia type: due to unspecified organism Laterality: left Lung location: upper lobe of lung Qualified Code(s): J18.9 - Pneumonia, unspecified organism Condition: Serious Disposition: ADMITTED INPATIENT Admitting Provider: Milena (Hospitalist) Unit Admitted: Telemetry Referrals: SEN OGDEN MD [Primary Care Provider] - Follow up as needed
[2019-12-31 14:43] LABS: INTERNATIONAL RATION (INR) 1.04; PROTHROMBIN TIME 13.8 SEC (11.4-15.4)
--- NOTE | 2019-12-31 15:29 | RADIOLOGY REPORT (SQ) ---
EXAM DESCRIPTION: CTA CHEST IMAGES COMPLETED DATE/TIME: 12/31/2019 3:05 pm REASON FOR STUDY: hypoxia, hypotension, r/o PE va PNA va contusion COMPARISON: Chest radiograph 12/31/2019; CT chest 04/07/2018 TECHNIQUE: CT scan of the chest performed using helical scanning technique with dynamic intravenous contrast injection. Images reviewed with lung, soft tissue and bone windows. Reconstructed coronal and sagittal MPR images reviewed. Additional 3 dimensional post-processing performed to develop Maximal Intensity Projection images (CT P). All images stored on PACS. All CT scanners at this facility use dose modulation, iterative reconstruction, and/or weight based d osing when appropriate to reduce radiation dose to as low as reasonably achievable (ALARA). [facility]: Dose Right [facility]: CareDose [facility]: Dose Right [facility]: Teradose 4D [facility]: Not iT CONTRAST TYPE AND DOSE: Omnipaque 350 71 mL Contrast bolus optimized for the pulmonary arteries. Not diagnostic for the aorta. RENAL FUNCTION: BUN 15; creatinine 0.77 RADIATION DOSE: CT Rad equipment meets quality standard of care and radiation dose reduction techniq ues were employed. CTDIvol: 18.8 - 19.8 mGy. DLP: 616 mGy-cm. . LIMITATIONS: None. FINDINGS: LUNGS AND PLEURA: There is dense consolidation in the left upper lobe and left lower lobe with some air bronchograms. There is relative sparing of the subpleural lung. AORTA AND GREAT VESSELS: No aneurysm. Contrast bolus not optimized for the aorta. HEART: No pericardial effusion. No significant coronary artery calcifications. PULMONARY ARTERIES: No emboli visualized in the main pulmonary arteries or the segmental branches. HILAR AND MEDIASTINAL STRUCTURES: No identified masses or abnormal nodes. HARDWARE: None in the chest. UPPER ABDOMEN: The gallbladder is surgically absent. There are also postoperative changes about the gastroesophageal junction. THYROID AND OTHER SOFT TISSUES: No masses. No adenopathy. BONES: Remote fractures of the left 4th through 6th ribs are noted. 3D MIPS: Confirm above findings. OTHER: No other significant finding. IMPRESSION: No pulmonary embolus. Dense consolidation in the left upper lobe and left lower lobe most consistent with multilobar pneumo jackelin. Recommend radiographic follow-up to resolution. COMMENT: Quality ID # [id number]: Final reports with documentation of one or more dose reduction techniques (e.g., Automated exposure control, adjustment of the mA and/or kV according to patient size, use of iterative reconstruction technique) TECHNICAL DOCUMENTATION: JOB ID: [id number] 2010 [email or web address]- All Rights Reserved Reading location - IP/workstation name: [email or web address]
[2019-12-31] MEDS ORDERED: RINGERS SOLUTION,LACTATED 1,000 ML IV ONE (15:41)
[2019-12-31 15:54] LABS: VENOUS BLOOD BASE EXCESS -2.8 mmol/L; VENOUS BLOOD HCO3 23.9 mmol/L (20-32); VENOUS BLOOD PCO2 49.5 mmHg (35-63); VENOUS BLOOD PH 7.3 (7.30-7.42)
[2019-12-31] MEDS ORDERED: ONDANSETRON HCL INJ/PF 4 MG/2 ML SDV IV PRN (16:30)
[2019-12-31] MEDS ORDERED: MAG HYDROX/AL HYDROX/SIMETH SUSP 30 ML UDCUP PO PRN (16:30)
[2019-12-31] MEDS ORDERED: NORMAL SALINE 1000 ML 500 ML IV ONE (16:40)
[2019-12-31] MEDS ORDERED: GUAIFENESIN/D-METHORPHAN (200-20 MG) SYRUP 10 ML PO PRN (16:49)
[2019-12-31] MEDS: ACETAMINOPHEN 325 MG TABLET PO PRN ×2 (16:59→22:48)
--- NOTE | 2019-12-31 17:04 | PDOC H&P ---
History of Present Illness Admission Date/PCP: 12/31/19 16:34 SEN OGDEN MD Patient complains of: Cough, fever History of Present Illness: JOSÉ EVANS is a 64 year old female with history of Tom-en-Y, what sounds like laryngeal pharyngeal reflux, hypertension, hypothyroidism, who presents to the hospital with complaints of cough, shortness of breath, fevers and rigors which started last night. Symptoms were preceded by an aspiration/reflux episode around 1 AM while patient was sleeping. States that she figured it would happen because she ate spicy food. He subsequently woke up coughing significantly and this has not been able to subside since then. Rigors developed and she later felt dizzy/lightheaded. She states she occasionally has been having episodes of laryngeal reflux every few months since having had a Tom-en-Y bariatric surgery. She denies any chest pain, nausea or vomiting. She states she does not take anything for reflux. Denies any sick/COVID exposures. Denies history of hiatal hernia. Past Medical History Cardiac Medical History: Reports: Hypertension Denies: Congestive Heart Failure, Coronary Artery Disease Pulmonary Medical History: Denies: Asthma, Chronic Obstructive Pulmonary Disease (COPD) Neurological Medical History: Denies: Hemorrhagic CVA, Ischemic CVA Endocrine Medical History: Reports: Hypothyroidism Denies: Diabetes Mellitus Type 1, Diabetes Mellitus Type 2 Renal/ Medical History: Denies: End Stage Renal Disease GI Medical History: Reports: Gastroesophageal Reflux Disease Musculoskeltal Medical History: Reports: Arthritis Past Surgical History Past Surgical History: Reports: Section Social History Smoking Status: Never Smoker Frequency of Alcohol Use: None Hx Recreational Drug Use: No - Advance Directive Resuscitation Status: Full Code Family History Family History: Hypertension Parental Family History Reviewed: Yes Children Family History Reviewed: NA Sibling(s) Family History Reviewed.: NA Medication/Allergy Home Medications: Levothyroxine Sodium [Synthroid] 175 mcg PO DAILY 08/31/11 Aspirin [Aspirin 81 mg Chewable Tablet] 81 mg PO DAILY 12/27/11 Fluoxetine HCl [Prozac 20 Mg Capsule] 20 mg PO DAILY 12/27/11 Gabapentin [Neurontin 100 Mg Capsule] 100 mg PO 12/27/11 Omeprazole [Prilosec 20 mg Capsule] 20 mg PO DAILY 12/27/11 Cephalexin Monohydrate [Keflex 500 mg Capsule] 500 mg PO QID #28 capsule 10/09/12 Oxybutynin [Oxytrol] 1 each TD QHS 10/09/12 Oxycodone HCl [Oxy-Ir 5 mg Tablet] 5 mg PO Q6 PRN #14 tablet 10/09/12 Hydrocodone/Acetaminophen [Worden 5-325 mg Tablet] 1 tab PO Q6 #12 tablet 04/07/18 Cephalexin Monohydrate [Keflex 500 mg Capsule] 500 mg PO BID 7 Days #14 capsule 02/06/19 Allergies/Adverse Reactions: No Known Allergies Allergy (Verified 12/31/19 10:38) Review of Systems Constitutional: PRESENT: fatigue, fever(s) Eyes: ABSENT: visual disturbances Ears: ABSENT: hearing changes Nose, Mouth, and Throat: ABSENT: headache(s) Cardiovascular: ABSENT: chest pain Respiratory: PRESENT: cough, dyspnea Gastrointestinal: ABSENT: abdominal pain, nausea, vomiting Genitourinary: ABSENT: difficulty urinating, dysuria Integumentary: PRESENT: diaphoresis Neurological: PRESENT: dizziness Psychiatric: ABSENT: anxiety Endocrine: ABSENT: polyuria Physical Exam Vital Signs: Temp Pulse Resp BP Pulse Ox 98.6 F 102 H 14 90/65 L 95 12/31/19 10:08 12/31/19 10:08 12/31/19 15:05 12/31/19 14:04 12/31/19 14:03 Intake & Output 12/30/19 12/31/19 01/01/20 06:59 06:59 06:59 Intake Total 1999 Balance 1999 Weight 107.8 kg General appearance: PRESENT: no acute distress, cooperative Head exam: PRESENT: normocephalic Mouth exam: PRESENT: neck supple Neck exam: ABSENT: JVD Respiratory exam: PRESENT: crackles - Left lung, symmetrical, unlabored. ABS ENT: tachypnea, wheezes Cardiovascular exam: PRESENT: RRR, +S1, +S2. ABSENT: tachycardia GI/Abdominal exam: PRESENT: soft. ABSENT: rebound, rigid, tenderness Extremities exam: ABSENT: calf tenderness Neurological exam: PRESENT: alert, awake, oriented to person, oriented to place, oriented to time Psychiatric exam: ABSENT: agitated, anxious Focused psych exam: ABSENT: pressured speech Skin exam: ABSENT: jaundice Results Laboratory Results: 12/31/19 10:32 12/31/19 10:32 12/31/19 12/31/1912/30/20 10:32 10:32 14:49 WBC 9.9 RBC 4.41 Hgb 13.9 Hct 40.6 MCV 92 MCH 31.4 MCHC 34.1 RDW 13.7 Plt Count 142 L Seg Neutrophils % Not Reportable VBG pH 7.30 VBG pCO2 49.5 VBG HCO3 23.9 VBG Base Excess -2.8 Sodium 136.0 L Potassium 3.8 Chloride 101 Carbon Dioxide 30 Anion Gap 5 BUN 15 Creatinine 0.77 Est GFR ( Amer) > 60 Glucose 105 Lactic Acid Calcium 9.4 Total Bilirubin 0.9 AST 26 Alkaline Phosphatase 64 Total Protein 6.5 Albumin 3.9 12/31/19 14:49 WBC RBC Hgb Hct MCV MCH MCHC RDW Plt Count Seg Neutrophils % VBG pH VBG pCO2 VBG HCO3 VBG Base Excess Sodium Potassium Chloride Carbon Dioxide Anion Gap BUN Creatinine Est GFR ( Amer) Glucose Lactic Acid 2.2 H Calcium Total Bilirubin AST Alkaline Phosphatase Total Protein Albumin 12/31/19 12/31/19 10:32 10:32 Creatine Kinase 68 CK-MB (CK-2) 0.55 Troponin I < 0.012 NT-Pro-B Natriuret Pep 290 H Impressions: Chest X-Ray 12/31/19 10:09 IMPRESSION: Subacute left upper rib fractures with patchy opacities over the left lung. This may represent posttraumatic changes or infection. Recommend clinical correlation and follow-up imaging to resolution. Chest/Abdomen CTA 12/31/19 13:45 IMPRESSION: No pulmonary embolus. Dense consolidation in the left upper lobe and left lower lobe most consistent with multilobar pneumonia. Recommend radiographic follow-up to resolution. Assessment and Plan - Diagnosis (1) Pneumonia Qualifiers: Pneumonia type: aspiration pneumonia Aspiration pneumonia type: due to gastric secretions Laterality: left Lung location: upper lobe of lung Q ualified Code(s): J69.0 - Pneumonitis due to inhalation of food and vomit Is this a current diagnosis for this admission?: Yes Plan: CT of the chest showing very dense consolidation which is quite extensive in the left upper and left lower lobes. No PE noted. Likely secondary to chronic laryngopharyngeal reflux with aspiration. Aspiration precautions Continue on Zosyn Check sputum culture Follow-up blood culture Flutter valve, Mucomyst (2) Sepsis associated hypotension Is this a current diagnosis for this admission?: Yes Plan: Patient technically meets criteria for sepsis secondary to pneumonia even despite the fact that she does not look or appear toxic in person. Lactic acid is elevated and patient was hypotensive in the ER despite 2 L. Likely the reason for her lightheadedness at home. We will give another 1.5 L IV fluid bolus. Repeat lactic acid level. I will also run on continuous IV fluid infusion. (3) Acute respiratory failure with hypoxia Is this a current diagnosis for this admission?: Yes Plan: Noted to be with SPO2 in the high 80s on room air to 90%. Placed on 2 L nasal cannula. Secondary to pneumonia. Will monitor. Oxygen supplementation will be provided if needed to maintain SPO2 at or above 90%. 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 This chronic problem is a risk factor for pneumonia. I will place patient on PPI therapy. Encourage lifestyle modifications including avoidance of trigger foods. I do not see any mention of hiatal hernia on her CT scan. (5) Hypothyroidism Qualifiers: Hypothyroidism type: unspecified Qualified Code(s): E03.9 - Hypothyroidism, unspecified Is this a current diagnosis for this admission?: Yes Plan: Resume Synthroid (6) Hypertension Is this a current diagnosis for this admission?: Yes Plan: Actually hypotensive at this time secondary to sepsis. She verifies that she did not take her telmisartan this morning. Keep antihypertensives on hold as of now. - Time Time Spent with patient: 35 or more minutes Anticipated Discharge Disposition: Home, Self Care Anticipated Discharge Timeframe: within 72 hours
[2019-12-31 17:38] LABS: APPEARANCE,URINE CLEAR; BILIRUBIN,URINE NEGATIVE (NEGATIVE); COLOR,URINE YELLOW; GLUCOSE, URINE NEGATIVE (NEGATIVE); KETONES,URINE NEGATIVE (NEGATIVE); PROTEIN,URINE NEGATIVE (NEGATIVE); URINE SPECIFIC GRAVITY 1.047; UROBILINOGEN,URINE NEGATIVE mg/dL (<2.0)
[2019-12-31] MEDS: ACETYLCYSTEINE 10% NEB 400 MG/4 ML VIAL NEB SCH (20:57)
--- NOTE | 2019-12-31 21:06 | EKG REPORT ---
SEVERITY:- BORDERLINE ECG - SINUS RHYTHM ATRIAL PREMATURE COMPLEX PROBABLE LEFT ATRIAL ABNORMALITY BORDERLINE R WAVE PROGRESSION, ANTERIOR LEADS : Confirmed by: Helen Chavez MD 31-Dec-2019 21:05:29
[2019-12-31] MEDS ORDERED: NORMAL SALINE 1000 ML 1,000 ML IV ONE (21:30)
[2019-12-31] MEDS: PIPERACILLIN/TAZOBACTAM 3.375 GM VIAL IV SCH (21:51)
[2020-01-01] MEDS: PANTOPRAZOLE SODIUM 40 MG TABLET.DR PO SCH (05:09)
[2020-01-01] MEDS: PIPERACILLIN/TAZOBACTAM 3.375 GM VIAL IV SCH (05:09)
[2020-01-01] MEDS: NORMAL SALINE 1000 ML 1,000 ML IV PRN ×2 (05:20→19:00)
[2020-01-01] MEDS: ACETAMINOPHEN 325 MG TABLET PO PRN ×2 (05:47→19:37)
[2020-01-01 06:44] LABS: ABSOLUTE BASOPHILS # (AUTO) 0.1 10^3/uL (0.0-0.2); ABSOLUTE EOSINOPHILS # (AUTO) 0.1 10^3/uL (0.0-0.6); ABSOLUTE LYMPHOCYTES (AUTO) 1.2 10^3/uL (0.5-4.7); ABSOLUTE NEUT (AUTO) 9.9 10^3/uL (1.7-8.2); BASOPHILS % (AUTO) 0.4 % (0-2); HEMATOCRIT 37.6 % (36.0-47.0); HEMOGLOBIN 12.6 g/dL (12.0-15.5); LYMPHOCYTES % (AUTO) 9.9 % (13-45); MEAN CORPUSCULAR HEMOGLOBIN 31.2 pg (27.0-33.4); MEAN CORPUSCULAR HGB CONC 33.6 g/dL (32.0-36.0); MEAN CORPUSCULAR VOLUME 93 fl (80-97); MONOCYTES % (AUTO) 7.8 % (3-13); PLATELET COUNT 121 10^3/uL (150-450); RED BLOOD COUNT 4.04 10^6/uL (3.72-5.28); SEGMENTED NEUTROPHILS % (AUTO) 80.9 % (42-78); TOTAL CELLS COUNTED % (AUTO) 100 %; WHITE BLOOD COUNT 12.3 10^3/uL (4.0-10.5)
[2020-01-01 06:59] LABS: ANION GAP 6 (5-19); BLOOD UREA NITROGEN 15 mg/dL (7-20); CALCIUM 8.2 mg/dL (8.4-10.2); CARBON DIOXIDE 26 mmol/L (22-30); CHLORIDE 105 mmol/L (98-107); GLUCOSE 92 mg/dL (75-110); POTASSIUM 3.5 mmol/L (3.6-5.0)
[2020-01-01] MEDS ORDERED: POTASSIUM CHLORIDE 10 MEQ TABLET.ER PO ONE (07:48)
[2020-01-01] MEDS: ACETYLCYSTEINE 10% NEB 400 MG/4 ML VIAL NEB SCH ×2 (09:16→20:15)
[2020-01-01] MEDS: ALBUTEROL SULFATE 0.083% NEB 2.5 MG/3 ML AMPUL NEB PRN ×2 (09:16→20:15)
--- NOTE | 2020-01-01 13:32 | PDOC PROGRESS REPORT ---
Subjective Progress Note for:: 01/01/20 Subjective:: Patient states that she feels a little bit better today. Still having some cough and some shortness of breath but improved. Denies any fevers or chills. Denies nausea or vomiting. Denies any recurrent aspiration events yesterday night. Reason For Visit: ASPIRATION PNEUMONIA,HYPOXIA Physical Exam Vital Signs: Temp Pulse Resp BP Pulse Ox 98.1 F 65 18 95/49 L 95 01/01/20 07:00 01/01/20 09:16 01/01/20 09:16 01/01/20 07:00 01/01/20 09:16 Intake & Output 12/31/19 01/01/20 01/02/20 06:59 06:59 06:59 Intake Total 5500 Balance 5500 Weight 107 kg General appearance: PRESENT: no acute distress, cooperative Neck exam: ABSENT: JVD Respiratory exam: PRESENT: crackles - Left lung upper and lower lobes, symmetrical, unlabored. ABSENT: tachypnea, wheezes Cardiovascular exam: PRESENT: RRR, +S1, +S2. ABSENT: tachycardia GI/Abdominal exam: PRESENT: soft. ABSENT: rebound, rigid, tenderness Neurological exam: PRESENT: alert, awake, oriented to person, oriented to place, oriented to time Results Laboratory Results: 01/01/20 06:13 01/01/20 06:13 12/31/19 12/31/19 12/31/19 14:49 14:49 17:07 WBC RBC Hgb Hct MCV MCH MCHC RDW Plt Count Seg Neutrophils % VBG pH 7.30 VBG pCO2 49.5 VBG HCO3 23.9 VBG Base Excess -2.8 Sodium Potassium Chloride Carbon Dioxide Anion Gap BUN Creatinine Est GFR ( Amer) Glucose Lactic Acid 2.2 H Calcium Magnesium Urine Color YELLOW Urine Appearance CLEAR Urine pH 5.0 Ur Specific [place] 1.047 Urine Protein NEGATIVE Urine Glucose (UA) NEGATIVE Urine Ketones NEGATIVE Urine Blood NEGATIVE Urine RBC (Auto) 1 12/31/19 12/31/19 01/01/20 19:09 21:50 06:13 WBC 12.3 H RBC 4.04 Hgb 12.6 Hct 37.6 MCV 93 MCH 31.2 MCHC 33.6 RDW 14.0 Plt Count 121 L Seg Neutrophils % 80.9 H VBG pH VBG pCO2 VBG HCO3 VBG Base Excess Sodium Potassium Chloride Carbon Dioxide Anion Gap BUN Creatinine Est GFR ( Amer) Glucose Lactic Acid 3.2 H 1.7 Calcium Magnesium Urine Color Urine Appearance Urine pH Ur Specific [place] Urine Protein Urine Glucose (UA) Urine Ketones Urine Blood Urine RBC (Auto) 01/01/20 06:13 WBC RBC Hgb Hct MCV MCH MCHC RDW Plt Count Seg Neutrophils % VBG pH VBG pCO2 VBG HCO3 VBG Base Excess Sodium 137.2 Potassium 3.5 L Chloride 105 Carbon Dioxide 26 Anion Gap 6 BUN 15 Creatinine 0.61 Est GFR ( Amer) > 60 Glucose 92 Lactic Acid Calcium 8.2 L Magnesium 1.8 Urine Color Urine Appearance Urine pH Ur Specific [place] Urine Protein Urine Glucose (UA) Urine Ketones Urine Blood Urine RBC (Auto) 12/31/19 12/31/19 10:32 10:32 Creatine Kinase 68 CK-MB (CK-2) 0.55 Troponin I < 0.012 NT-Pro-B Natriuret Pep 290 H Impressions: Chest X-Ray 12/31/19 10:09 IMPRESSION: Subacute left upper rib fractures with patchy opacities over the left lung. This may represent posttraumatic changes or infection. Recommend clinical correlation and follow-up imaging to resolution. Chest/Abdomen CTA 12/31/19 13:45 IMPRESSION: No pulmonary embolus. Dense consolidation in the left upper lobe and left lower lobe most consistent with multilobar pneumonia. Recommend radiographic follow-up to resolution. Assessment and Plan - Diagnosis (1) Pneumonia Qualifiers: Pneumonia type: aspiration pneumonia Aspiration pneumonia type: due to gastric secretions Laterality: left Lung location: upper lobe of lung Qualified Code(s): J69.0 - Pneumonitis due to inhalation of food and vomit Is this a current diagnosis for this admission?: Yes Plan: CT of the chest showing very dense consolidation which is quite extensive in the left upper and left lower lobes. No PE noted. Likely secondary to chronic laryngopharyngeal reflux with aspiration. Aspiration precautions Continue on Zosyn Check sputum culture Follow-up blood culture Flutter valve, Mucomyst (2) Sepsis associated hypotension Is this a current diagnosis for this admission?: Yes Plan: Lactic acidosis has resolved. Continue on gentle infusion of continuous IV fluids. Still soft BPs but MAP is adequate. A.m. cortisol is 7 which, even though within normal range, may indicate that patient is mildly adrenally insufficient as I expect her cortisol to be much higher given her current infection. If BP does not improve, I will consider cosyntropin test and initiating stress dose steroids. (3) Acute respiratory failure with hypoxia Is this a current diagnosis for this admission?: Yes Plan: Noted to be with SPO2 in the high 80s on room air to 90%. Placed on 2 L nasal cannula. Secondary to pneumonia. Will monitor. Oxygen supplementation will be provided if needed to maintain SPO2 at or above 90%. 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 This chronic problem is a risk factor for pneumonia. I will place patient on PPI therapy. Encourage lifestyle modifications including avoidance of trigger foods. I do not see any mention of hiatal hernia on her CT scan. (5) Hypothyroidism Qualifiers: Hypothyroidism type: unspecified Qualified Code(s): E03.9 - Hypothyroidism, unspecified Is this a current diagnosis for this admission?: Yes Plan: Resume Synthroid. Awaiting medication reconciliation confirmation. Check TSH in the morning. (6) Hypertension Is this a current diagnosis for this admission?: Yes Plan: Continue holding antihypertensives. - Time Time Spent with patient: Less than 15 minutes Anticipated Discharge Disposition: Home, Self Care Anticipated Discharge Timeframe: within 72 hours
[2020-01-01] MEDS ORDERED: PIPERACILLIN SODIUM/TAZOBACTAM 3.375 GM in NORMAL SALINE 100 ML IV SCH (14:00)
[2020-01-01] MEDS: ENOXAPARIN SODIUM INJ 40 MG/0.4 ML DISP.SYRIN SUBCUT SCH (15:44)
[2020-01-01] MEDS: PIPERACILLIN SODIUM/TAZOBACTAM 3.375 GM in NORMAL SALINE 100 ML IV SCH (16:54)
[2020-01-02] MEDS: PIPERACILLIN SODIUM/TAZOBACTAM 3.375 GM in NORMAL SALINE 100 ML IV SCH ×3 (02:14→17:09)
[2020-01-02] MEDS: PANTOPRAZOLE SODIUM 40 MG TABLET.DR PO SCH (05:57)
[2020-01-02 07:00] LABS: ABSOLUTE EOSINOPHILS # (AUTO) 0.1 10^3/uL (0.0-0.6); ABSOLUTE MONOCYTES (AUTO) 0.7 10^3/uL (0.1-1.4); ABSOLUTE NEUT (AUTO) 6.6 10^3/uL (1.7-8.2); BASOPHILS % (AUTO) 0.4 % (0-2); EOSINOPHILS % (AUTO) 1.2 % (0-6); HEMOGLOBIN 11.4 g/dL (12.0-15.5); LYMPHOCYTES % (AUTO) 11.9 % (13-45); MEAN CORPUSCULAR HEMOGLOBIN 31.3 pg (27.0-33.4); MEAN CORPUSCULAR HGB CONC 33.6 g/dL (32.0-36.0); MEAN CORPUSCULAR VOLUME 93 fl (80-97); MONOCYTES % (AUTO) 8.1 % (3-13); PLATELET COUNT 108 10^3/uL (150-450); RED BLOOD COUNT 3.66 10^6/uL (3.72-5.28); RED CELL DISTRIBUTION WIDTH 13.9 % (11.5-14.0); SEGMENTED NEUTROPHILS % (AUTO) 78.4 % (42-78); TOTAL CELLS COUNTED % (AUTO) 100 %; WHITE BLOOD COUNT 8.4 10^3/uL (4.0-10.5)
[2020-01-02 07:26] LABS: BLOOD UREA NITROGEN 9 mg/dL (7-20); CALCIUM 7.9 mg/dL (8.4-10.2); GLUCOSE 91 mg/dL (75-110); POTASSIUM 3.9 mmol/L (3.6-5.0)
[2020-01-02 07:32] LABS: CARBON DIOXIDE 25 mmol/L (22-30); CHLORIDE 108 mmol/L (98-107)
[2020-01-02 07:37] LABS: ANION GAP 3 (5-19)
[2020-01-02] MEDS: ACETYLCYSTEINE 10% NEB 400 MG/4 ML VIAL NEB SCH ×2 (07:41→19:32)
[2020-01-02] MEDS: ALBUTEROL SULFATE 0.083% NEB 2.5 MG/3 ML AMPUL NEB PRN ×2 (07:41→19:31)
[2020-01-02] MEDS ORDERED: ONDANSETRON HCL INJ/PF 4 MG/2 ML SDV IV PRN (09:00)
[2020-01-02] MEDS: ENOXAPARIN SODIUM INJ 40 MG/0.4 ML DISP.SYRIN SUBCUT SCH (09:33)
--- NOTE | 2020-01-02 10:50 | PDOC PROGRESS REPORT ---
Subjective Progress Note for:: 01/02/20 Subjective:: Patient blood pressure has improved today. Also able to wean her off oxygen this morning. Patient is feeling a lot better. Still feels some junk in her chest but has been able to cough up more sputum with the Mucomyst treatments. Her shortness of breath has remarkably improved. Reason For Visit: ASPIRATION PNEUMONIA,HYPOXIA Physical Exam Vital Signs: Temp Pulse Resp BP Pulse Ox 97.9 F 65 16 105/59 L 97 01/02/20 07:39 01/02/20 07:41 01/02/20 07:41 01/02/20 07:39 01/02/20 07:41 Intake & Output 01/01/20 01/02/20 01/03/20 06:59 06:59 06:59 Intake Total 5500 1674 1100 Output Total 900 Balance 5500 774 1100 Weight 107 kg 117.1 kg General appearance: PRESENT: no acute distress, cooperative Neck exam: ABSENT: JVD Respiratory exam: PRESENT: crackles - Mild in left lung but a lot better than yesterday., symmetrical, unlabored. ABSENT: tachypnea, wheezes Cardiovascular exam: PRESENT: +S1, +S2. ABSENT: tachycardia Neurological exam: PRESENT: alert, awake, oriented to person, oriented to place, oriented to time Results Laboratory Results: 01/02/20 06:36 01/02/20 06:36 01/02/20 01/02/20 01/02/20 06:36 06:36 06:36 WBC 8.4 RBC 3.66 L Hgb 11.4 L Hct 34.0 L MCV 93 MCH 31.3 MCHC 33.6 RDW 13.9 Plt Count 108 L Seg Neutrophils % 78.4 H Sodium 136.4 L Potassium 3.9 Chloride 108 H Carbon Dioxide 25 Anion Gap 3 L BUN 9 Creatinine 0.55 Est GFR ( Amer) > 60 Glucose 91 Calcium 7.9 L Magnesium 2.0 TSH 1.38 12/31/19 12/31/19 10:32 10:32 Creatine Kinase 68 CK-MB (CK-2) 0.55 Troponin I < 0.012 NT-Pro-B Natriuret Pep 290 H Impressions: Chest X-Ray 12/31/19 10:09 IMPRESSION: Subacute left upper rib fractures with patchy opacities over the left lung. This may represent posttraumatic changes or infection. Recommend clinical correlation and follow-up imaging to resolution. Chest/Abdomen CTA 12/31/19 13:45 IMPRESSION: No pulmonary embolus. Dense consolidation in the left upper lobe and left lower lobe most consistent with multilobar pneumonia. Recommend radiographic follow-up to resolution. Assessment and Plan - Diagnosis (1) Pneumonia Qualifiers: Pneumonia type: aspiration pneumonia Aspiration pneumonia type: due to gastric secretions Laterality: left Lung location: upper lobe of lung Qualified Code(s): J69.0 - Pneumonitis due to inhalation of food and vomit Is this a current diagnosis for this admission?: Yes Plan: CT of the chest showing very dense consolidation which is quite extensive in the left upper and left lower lobes. No PE noted. Likely secondary to chronic laryngopharyngeal reflux with aspiration. Aspiration precautions Continue on Zosyn. Day 3/7 of antibiotics. Can switch to p.o. antibiotics tomorrow. Sputum culture still pending Blood cultures negative so far Flutter valve, Mucomyst to help with expectoration. COVID-19 test pending. (2) Sepsis associated hypotension Is this a current diagnosis for this admission?: Yes Plan: Lactic acidosis has resolved. Continue on gentle infusion of continuous IV fluids. Still soft BPs but MAP is adequate. A.m. cortisol is 7 which, even though within normal range, may indicate that patient is mildly adrenally insufficient as I expect her cortisol to be much higher given her current infection. If BP does not improve, I will consider cosyntropin test and initiating stress dose steroids. 01/02/2020-BP seems to have improved and normalized. Will discontinue IV fluids. Monitor blood pressures today off fluids. (3) Acute respiratory failure with hypoxia Is this a current diagnosis for this admission?: Yes Plan: Resolved at this point. I was able to take patient off nasal cannula this morning and SPO2 was 95-97% on RA.. 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 This chronic problem is a risk factor for pneumonia. I have placed patient on PPI therapy. Encourage lifestyle modifications including avoidance of trigger foods. I do not see any mention of hiatal hernia on her CT scan. (5) Hypothyroidism Qualifiers: Hypothyroidism type: unspecified Qualified Code(s): E03.9 - Hypothyroidism, unspecified Is this a current diagnosis for this admission?: Yes Plan: Continue Synthroid. TSH is adequate. (6) Hypertension Is this a current diagnosis for this admission?: Yes Plan: Continue holding antihypertensives. Can resume if her BP starts to run high. - Time Time Spent with patient: Less than 15 minutes Anticipated Discharge Disposition: Home, Self Care Anticipated Discharge Timeframe: within 24 hours
[2020-01-02] MEDS ORDERED: LEVOTHYROXINE SODIUM 0.025 MG TABLET PO SCH (11:00)
[2020-01-02] MEDS: LEVOTHYROXINE SODIUM 0.075 MG TABLET PO SCH (11:49)
[2020-01-02] MEDS: OXYBUTYNIN CHLORIDE 5 MG TABLET PO SCH (11:50)
[2020-01-02] MEDS: LEVOTHYROXINE SODIUM 0.1 MG TABLET PO SCH (11:50)
[2020-01-02] MEDS: CYANOCOBALAMIN (VITAMIN B-12) 1,000 MCG TABLET PO SCH (11:50)
[2020-01-02] MEDS: FERROUS SULFATE 325 MG TABLET PO SCH (11:50)
[2020-01-02] MEDS ORDERED: GABAPENTIN 300 MG CAPSULE PO SCH (22:00)
[2020-01-03] MEDS: PIPERACILLIN SODIUM/TAZOBACTAM 3.375 GM in NORMAL SALINE 100 ML IV SCH ×2 (03:27→10:25)
[2020-01-03] MEDS: LEVOTHYROXINE SODIUM 0.075 MG TABLET PO SCH (06:21)
[2020-01-03] MEDS: PANTOPRAZOLE SODIUM 40 MG TABLET.DR PO SCH (06:21)
[2020-01-03] MEDS: LEVOTHYROXINE SODIUM 0.1 MG TABLET PO SCH (06:22)
[2020-01-03] MEDS: ACETYLCYSTEINE 10% NEB 400 MG/4 ML VIAL NEB SCH (08:25)
[2020-01-03] MEDS: ALBUTEROL SULFATE 0.083% NEB 2.5 MG/3 ML AMPUL NEB PRN (08:25)
[2020-01-03] MEDS: ENOXAPARIN SODIUM INJ 40 MG/0.4 ML DISP.SYRIN SUBCUT SCH (09:05)
[2020-01-03] MEDS: FERROUS SULFATE 325 MG TABLET PO SCH (09:11)
[2020-01-03] MEDS: OXYBUTYNIN CHLORIDE 5 MG TABLET PO SCH (09:11)
[2020-01-03] MEDS: CYANOCOBALAMIN (VITAMIN B-12) 1,000 MCG TABLET PO SCH (09:11)
--- NOTE | 2020-01-03 16:19 | PDOC DISCHARGE SUMMARY ---
Impression - Admit/DC Date/PCP Admission Date/Primary Care Provider: 12/31/19 16:34 SEN OGDEN MD Discharge Date: 01/03/20 - Additional Information Resuscitation Status: Full Code Discharge Diet: Cardiac Discharge Activity: Activity As Tolerated, Slowly Increase Activity Referrals: SEN OGDEN MD [Primary Care Provider] - 01/10/20 1:15 pm (Appointment is with SAVITA Hylton.) Prescriptions: Amoxicillin/Potassium Clav [Augmentin 875-125 Tablet] 1 tab PO Q12 7 Days #14 tablet Doxycycline Monohydrate [Monodox] 100 mg PO BID 4 Days #8 capsule Posaconazole 100 mg PO DAILY 7 Days #7 tablet. Pantoprazole Sodium [Protonix [address] Tablet] 40 mg PO Q6AM 15 Days #15 tablet. Albuterol Sulfate [Ventolin Hfa 8 gm Mdi] 2 puff IH Q4HP PRN #1 inhaler PRN Reason: Shortness Of Breath Home Medications: Cyanocobalamin (Vitamin B-12) [B-12] 3,000 mcg SL DAILY 01/01/20 Ferrous Sulfate [Feosol 325 mg Tablet] 325 mg PO DAILY 01/01/20 Gabapentin 600 mg PO QHS 01/01/20 Levothyroxine Sodium [Synthroid] 175 mcg PO QAM 01/01/20 Oxybutynin Chloride [Oxybutynin Chloride ER] 10 mg PO DAILY 01/01/20 Telmisartan 40 mg PO DAILY 01/01/20 Albuterol Sulfate [Ventolin Hfa 8 gm Mdi] 2 puff IH Q4HP PRN #1 inhaler 01/03/20 Amoxicillin/Potassium Clav [Augmentin 875-125 Tablet] 1 tab PO Q12 7 Days #14 tablet 01/03/20 Guaifenesin/D-Methorphan Hb [Robitussin-Dm Syrup 10 ml Udcup] 10 ml PO QIDP PRN syrup 01/03/20 Mag Hydrox/Al Hydrox/Simeth [Maalox Plus Susp 30 Udcup] 30 ml PO Q6HP PRN udc 0 01/03/20 Pantoprazole Sodium [Protonix [address] Tablet] 40 mg PO Q6AM 15 Days #15 tablet. 01/03/20 Posaconazole 100 mg PO DAILY 7 Days #7 tablet. 01/03/20 Doxycycline Monohydrate [Monodox] 100 mg PO BID 4 Days #8 capsule 01/04/20 History of Present Illiness History of Present Illness: From the history and physical JOSÉ EVANS is a 64 year old female with history of Tom-en-Y, what sounds like laryngeal pharyngeal reflux, hypertension, hypothyroidism, who presents to the hospital with complaints of cough, shortness of breath, fevers and rigors which started last night. Symptoms were preceded by an aspiration/reflux episode around 1 AM while patient was sleeping. States that she figured it would happen because she ate spicy food. He subsequently woke up coughing significantly and this has not been able to subside since then. Rigors developed and she later felt dizzy/lightheaded. She states she occasionally has been having episodes of laryngeal reflux every few months since having had a Tom-en-Y bariatric surgery. She denies any chest pain, nausea or vomiting. She states she does not take anything for reflux. Denies any sick/COVID exposures. Denies history of hiatal hernia. Hospital Course Hospital Course: Unremarkable hospital course. The patient was tapered from oxygen. Antibiotic therapy was converted to oral to complete therapy as an outpatient. Physical Exam Vital Signs: Temp Pulse Resp BP Pulse Ox 98.5 F 69 16 110/68 94 01/03/20 15:45 01/03/20 15:45 01/03/20 15:45 01/03/20 15:45 01/03/20 15:45 Intake & Output 01/02/20 01/03/20 01/04/20 06:59 06:59 06:59 Intake Total 1674 2020 340 Output Total 900 1800 900 Balance 774 220 -560 Weight 117.1 kg 117.1 kg General appearance: PRESENT: no acute distress Respiratory exam: PRESENT: symmetrical, unlabored, other - Coarse breath sounds. ABSENT: rales, rhonchi, tachypnea, wheezes Cardiovascular exam: PRESENT: RRR, +S1, +S2. ABSENT: bradycardia, diastolic murmur, systolic murmur, tachycardia GI/Abdominal exam: PRESENT: normal bowel sounds, soft. ABSENT: tenderness Results Laboratory Results: WBC 8.4 10^3/uL (4.0-10.5) 01/02/20 06:36 RBC 3.66 10^6/uL (3.72-5.28) L 01/02/20 06:36 Hgb 11.4 g/dL (12.0-15.5) L 01/02/20 06:36 Hct 34.0 % (36.0-47.0) L 01/02/20 06:36 MCV 93 fl (80-97) 01/02/20 06:36 MCH 31.3 pg (27.0-33.4) 01/02/20 06:36 MCHC 33.6 g/dL (32.0-36.0) 01/02/20 06:36 RDW 13.9 % (11.5-14.0) 01/02/20 06:36 Plt Count 108 10^3/uL (150-450) L 01/02/20 06:36 Lymph % (Auto) 11.9 % (13-45) L 01/02/20 06:36 [place] % (Auto) 8.1 % (3-13) 01/02/20 06:36 Eos % (Auto) 1.2 % (0-6) 01/02/20 06:36 Baso % (Auto) 0.4 % (0-2) 01/02/20 06:36 Absolute Neuts (auto) 6.6 10^3/uL (1.7-8.2) 01/02/20 06:36 Absolute Lymphs (auto) 1.0 10^3/uL (0.5-4.7) 01/02/20 06:36 Absolute Monos (auto) 0.7 10^3/uL (0.1-1.4) 01/02/20 06:36 Absolute Eos (auto) 0.1 10^3/uL (0.0-0.6) 01/02/20 06:36 Absolute Basos (auto) 0.0 10^3/uL (0.0-0.2) 01/02/20 06:36 Total Counted 100 12/31/19 10:32 Seg Neutrophils % 78.4 % (42-78) H 01/02/20 06:36 Seg Neuts % (Manual) 86 % (42-78) H 12/31/19 10:32 Lymphocytes % (Manual) 6 % (13-45) L 12/31/19 10:32 Monocytes % (Manual) 8 % (3-13) 12/31/19 10:32 Eosinophils % (Manual) 0 % (0-6) 12/31/19 10:32 Basophils % (Manual) 0 % (0-2) 12/31/19 10:32 Abs Neuts (Manual) 8.5 10^3/uL (1.7-8.2) H 12/31/19 10:32 Abs Lymphs (Manual) 0.6 10^3/uL (0.5-4.7) 12/31/19 10:32 Abs Monocytes (Manual) 0.8 10^3/uL (0.1-1.4) 12/31/19 10:32 Absolute Eos (Manual) 0.0 10^3/uL (0.0-0.6) 12/31/19 10:32 Abs Basophils (Manual) 0.0 10^3/uL (0.0-0.2) 12/31/19 10:32 Platelet Comment ADEQUATE 12/31/19 10:32 RBC Morph Comment NORMO-CYTIC/CHROMIC 12/31/19 10:32 PT 13.8 SEC (11.4-15.4) 12/31/19 10:32 INR 1.04 12/31/19 10:32 VBG pH 7.30 (7.30-7.42) 12/31/19 14:49 VBG pCO2 49.5 mmHg (35-63) 12/31/19 14:49 VBG HCO3 23.9 mmol/L (20-32) 12/31/19 14:49 VBG Base Excess -2.8 mmol/L 12/31/19 14:49 Sodium 136.4 mmol/L (137-145) L 01/02/20 06:36 Potassium 3.9 mmol/L (3.6-5.0) 01/02/20 06:36 Chloride 108 mmol/L (98-107) H 01/02/20 06:36 Carbon Dioxide 25 mmol/L (22-30) 01/02/20 06:36 Anion Gap 3 (5-19) L 01/02/20 06:36 BUN 9 mg/dL (7-20) 01/02/20 06:36 Creatinine 0.55 mg/dL (0.52-1.25) 01/02/20 06:36 Est GFR ( Amer) > 60 (>60) 01/02/20 06:36 Est GFR (MDRD) Non-Af > 60 (>60) 01/02/20 06:36 Glucose 91 mg/dL (75-110) 01/02/20 06:36 Lactic Acid 1.7 mmol/L (0.7-2.1) 12/31/19 21:50 Calcium 7.9 mg/dL (8.4-10.2) L 01/02/20 06:36 Magnesium 2.0 mg/dL (1.6-2.3) 01/02/20 06:36 Total Bilirubin 0.9 mg/dL (0.2-1.3) 12/31/19 10:32 Direct Bilirubin 0.0 mg/dL (0.0-0.4) 12/31/19 10:32 Neonat Total Bilirubin Not Reportable 12/31/19 10:32 Neonat Direct Bilirubin Not Reportable 12/31/19 10:32 Neonat Indirect Bili Not Reportable 12/31/19 10:32 AST 26 U/L (14-36) 12/31/19 10:32 ALT 14 U/L (<35) 12/31/19 10:32 Alkaline Phosphatase 64 U/L (38-126) 12/31/19 10:32 Creatine Kinase 68 U/L (30-135) 12/31/19 10:32 CK-MB (CK-2) 0.55 ng/mL (<4.55) 12/31/19 10:32 Troponin I < 0.012 ng/mL 12/31/19 10:32 NT-Pro-B Natriuret Pep 290 pg/mL (<125) H 12/31/19 10:32 Total Protein 6.5 g/dL (6.3-8.2) 12/31/19 10:32 Albumin 3.9 g/dL (3.5-5.0) 12/31/19 10:32 TSH 1.38 uIU/mL (0.47-4.68) 01/02/20 06:36 Cortisol AM Sample 7.02 ug/dL (4.46-22.7) 01/01/20 06:13 Urine Color YELLOW 12/31/19 17:07 Urine Appearance CLEAR 12/31/19 17:07 Urine pH 5.0 (5.0-9.0) 12/31/19 17:07 Ur Specific [place] 1.047 12/31/19 17:07 Urine Protein NEGATIVE mg/dL (NEGATIVE) 12/31/19 17:07 Urine Glucose (UA) NEGATIVE mg/dL (NEGATIVE) 12/31/19 17:07 Urine Ketones NEGATIVE mg/dL (NEGATIVE) 12/31/19 17:07 Urine Blood NEGATIVE (NEGATIVE) 12/31/19 17:07 Urine Nitrite (Reflex) NEGATIVE (NEGATIVE) 12/31/19 17:07 Urine Bilirubin NEGATIVE (NEGATIVE) 12/31/19 17:07 Urine Urobilinogen NEGATIVE mg/dL (<2.0) 12/31/19 17:07 Leukocyte Esterase Rfl NEGATIVE (NEGATIVE) 12/31/19 17:07 Urine RBC (Auto) 1 /HPF 12/31/19 17:07 Urine WBC (Reflex) 1 /HPF 12/31/19 17:07 Squamous Epi Cells Auto <1 /HPF 12/31/19 17:07 Urine Mucus (Auto) RARE /LPF 12/31/19 17:07 Urine Ascorbic Acid NEGATIVE (NEGATIVE) 12/31/19 17:07 COVID-19 Source NASOPHARYNGEAL 12/31/19 11:43 COVID-19 ([place]) NOT DETECTED 12/31/19 11:43 Influenza A (Rapid) NEGATIVE (NEGATIVE) 12/31/19 11:43 Influenza B (Rapid) NEGATIVE (NEGATIVE) 12/31/19 11:43 12/31/19 10:32 CK-MB (CK-2) 0.55 Troponin I < 0.012 NT-Pro-B Natriuret Pep 290 H Impressions: Chest X-Ray 12/31/19 10:09 IMPRESSION: Subacute left upper rib fractures with patchy opacities over the left lung. This may represent posttraumatic changes or infection. Recommend clinical correlation and follow-up imaging to resolution. Chest/Abdomen CTA 12/31/19 13:45 IMPRESSION: No pulmonary embolus. Dense consolidation in the left upper lobe and left lower lobe most consistent with multilobar pneumonia. Recommend radiographic follow-up to resolution. Plan Health Concerns: Sputum culture revealed Misty and gram-positive cocci in clusters. Patient was discharged on fluconazole and Augmentin. Plan of Treatment: Complete antibiotics as above Goals: Complete resolution of infection Time Spent: Greater than 30 Minutes Stroke Is this a Stroke Patient?: No Acute Heart Failure - Is this a Heart Failure Patient?: No
[2020-01-03 16:24] VITALS: BP 122/75
--- NOTE | 2020-01-04 10:34 | Progress Note ---
Provider Note Provider Note: Received call from microbiology. The gram-positive cocci in clusters from the patient's sputum culture is methicillin-resistant staph aureus. I called the patient and told her to stop taking the Augmentin and instead I sent prescription for doxycycline 100 mg twice a day. The patient already has some doxycycline at home and therefore I called in for additional days of therapy.
== END 2020-01-03 16:55 | disposition home or self-care (01) | DRG 871 ==
LOC: ER 09:53 → EH 16:34 → 3N 18:00 → 4W 01-03 09:33
PROVIDERS: ADMIT Internal Medicine; ATTEND Hospitalist
DX: A41.9 Sepsis, unspecified organism (principal); J15.212 Pneumonia due to Methicillin resistant Staphylococcus aureus; J69.0 Pneumonitis due to inhalation of food and vomit; K21.9 Gastro-esophageal reflux disease without esophagitis; I10 Essential (primary) hypertension; E03.9 Hypothyroidism, unspecified; R09.02 Hypoxemia; Z20.828 Contact with and (suspected) exposure to other viral communicable diseases; Z79.899 Other long term (current) drug therapy; Z79.890 Hormone replacement therapy
CPT/HCPCS: 36415; 71045; 71275; 80048; 80053; 81001; 82533; 82550; 82553; 82803; 83605; 83735; 83880; 84443; 84484; 85025; 85610; 87040; 87070; 87077; 87186; 87205; 87635; 87804; 93005; 93010; 94667; 94668; 96361; 96365; 99285; C9803; J2543; J3490; J7030; J7050; J7120